=== PATIENT | female | born 1970 | race Caucasian/White ===

== ENCOUNTER 2017-03-04 09:23 | Emergency (ER) | payer OTHER ==
[~2017-03-04] VITALS: Ht 162.6 cm; Wt 81.0 kg
[2017-03-04 10:45] VITALS: BP 130/64
== END 2017-03-04 10:45 | disposition home or self-care (01) ==
LOC: ED 09:23
DX: S13.9XXA Sprain of joints and ligaments of unspecified parts of neck, initial encounter (principal); Z87.891 Personal history of nicotine dependence; V43.52XA Car driver injured in collision with other type car in traffic accident, initial encounter; Y93.89 Activity, other specified; Y92.89 Other specified places as the place of occurrence of the external cause; Y99.8 Other external cause status
CPT/HCPCS: Q0162

== ENCOUNTER 2017-05-14 11:37 | Emergency (ER) | payer OTHER ==
[2017-05-14 12:30] LABS: BASOPHIL % 0.4 % (0-2); PLATELET COUNT 306 x10^3mcL (130-400); RED CELL DISTRIBUTION WIDTH 12.8 % (11.5-14.5)
[2017-05-14 12:42] LABS: CALCIUM 8.7 mg/dL (8.5-10.1); CARBON DIOXIDE 26.6 mmol/L (21-32); CHLORIDE SERUM 103 mmol/L (98-107); CREATININE SERUM 0.8 mg/dL (0.6-1.0); GFR1 > 60 mL/min; GLUCOSE SERUM 82 mg/dL (74-106); SODIUM SERUM 135 mmol/L (136-145)
[2017-05-14 12:47] LABS: ALKALINE PHOSPHATASE 75 U/L (46-116); ALT/SGPT 26 U/L (14-59); AST/SGOT 16 U/L (15-37); BILIRUBIN TOTAL 0.3 mg/dL (0.20-1.00); LIPASE 879 IU/L (73-393); TOTAL PROTEIN, SERUM 7.4 g/dL (6.4-8.2)
[2017-05-14 12:48] LABS: ALBUMIN 3.3 g/dL (3.4-5.0); AMYLASE 123 U/L (25-115)
[2017-05-14 13:48] VITALS: BP 118/64
== END 2017-05-14 13:48 | disposition home or self-care (01) ==
LOC: ED 11:37
PROVIDERS: Emergency Medicine
DX: R10.31 Right lower quadrant pain (principal); R11.0 Nausea; G44.209 Tension-type headache, unspecified, not intractable; I10 Essential (primary) hypertension; F32.9 Major depressive disorder, single episode, unspecified
CPT/HCPCS: 36415; 83880; J1885